=== PATIENT | male | born 1995 | race Caucasian/White ===

== ENCOUNTER 2018-06-22 10:24 | Emergency (ER) | payer SELFPAY ==
[~2018-06-22] VITALS: Ht 170.2 cm; Wt 88.1 kg
[2018-06-22 10:31] VITALS: Ht 170.2 cm; Wt 88.1 kg
[2018-06-22 12:57] VITALS: BP 124/66
== END 2018-06-22 12:57 | disposition home or self-care (01) ==
LOC: ED 10:24
DX: M25.562 Pain in left knee (principal); M54.5 Low back pain; F17.210 Nicotine dependence, cigarettes, uncomplicated; J45.909 Unspecified asthma, uncomplicated

== ENCOUNTER 2018-08-12 00:06 | Emergency (ER) | payer OTHER ==
[~2018-08-12] VITALS: Ht 177.8 cm; Wt 86.2 kg
[2018-08-12 00:10] VITALS: Ht 177.8 cm; Wt 86.2 kg
[2018-08-12 02:07] VITALS: BP 117/70
== END 2018-08-12 02:07 | disposition home or self-care (01) ==
LOC: ED 00:06
DX: T15.02XA Foreign body in cornea, left eye, initial encounter (principal); J45.909 Unspecified asthma, uncomplicated; W22.8XXA Striking against or struck by other objects, initial encounter; Y93.89 Activity, other specified; Y92.89 Other specified places as the place of occurrence of the external cause; Y99.8 Other external cause status

== ENCOUNTER 2019-05-18 20:02 | Emergency (ER) | payer OTHER ==
[~2019-05-18] VITALS: Ht 177.8 cm; Wt 86.4 kg
[2019-05-18 20:58] VITALS: BP 122/72; Ht 177.8 cm; Wt 86.4 kg
== END 2019-05-18 22:30 | disposition home or self-care (01) ==
LOC: ED 20:02
DX: F41.9 Anxiety disorder, unspecified (principal); J45.909 Unspecified asthma, uncomplicated; Z98.890 Other specified postprocedural states

== ENCOUNTER 2019-07-06 16:27 | Emergency (ER) | payer OTHER ==
[~2019-07-06] VITALS: Ht 177.8 cm; Wt 86.2 kg
[2019-07-06 16:34] VITALS: Ht 177.8 cm; Wt 86.2 kg
[2019-07-06 22:11] VITALS: BP 127/45
== END 2019-07-06 22:11 | disposition home or self-care (01) ==
LOC: ED 16:27
DX: S90.32XA Contusion of left foot, initial encounter (principal); J45.909 Unspecified asthma, uncomplicated; V43.52XA Car driver injured in collision with other type car in traffic accident, initial encounter; Y93.I9 Activity, other involving external motion; Y92.413 State road as the place of occurrence of the external cause; Y99.8 Other external cause status

== ENCOUNTER 2019-07-08 11:07 | Emergency (ER) | payer OTHER ==
[~2019-07-08] VITALS: Ht 177.8 cm; Wt 88.0 kg
[2019-07-08 11:17] VITALS: Ht 177.8 cm; Wt 88.0 kg
[2019-07-08 12:40] VITALS: BP 110/63
== END 2019-07-08 13:50 | disposition home or self-care (01) ==
LOC: ED 11:07
DX: G47.00 Insomnia, unspecified (principal); F12.90 Cannabis use, unspecified, uncomplicated; J45.909 Unspecified asthma, uncomplicated; S90.812D Abrasion, left foot, subsequent encounter; S50.312D Abrasion of left elbow, subsequent encounter; V28.4XXD Motorcycle driver injured in noncollision transport accident in traffic accident, subsequent encounter

== ENCOUNTER 2019-08-16 11:41 | Emergency (ER) | payer OTHER ==
[~2019-08-16] VITALS: Ht 177.8 cm; Wt 86.8 kg
[2019-08-16 11:54] VITALS: BP 110/62; Ht 177.8 cm; Wt 86.8 kg
== END 2019-08-16 12:27 | disposition home or self-care (01) ==
LOC: ED 11:41
DX: Z13.89 Encounter for screening for other disorder (principal); J45.909 Unspecified asthma, uncomplicated